=== PATIENT | male | born 1985 | race African-American/Black ===

== ENCOUNTER 2018-03-06 20:47 | Outpatient (CLI) | payer BC | END 2018-03-06 20:48 | disposition critical access hospital (66) | LOC: EMS 20:47 | PROVIDERS: ATTEND Surgery | DX: R06.00 Dyspnea, unspecified (principal) | CPT/HCPCS: A0425; A0427 ==

== ENCOUNTER 2018-03-06 21:05 | Emergency (ER) | payer BC ==
[2018-03-06] MEDS ORDERED: IPRATROPIUM/ALBUTEROL 3 ML NEB INH STA (21:09)
[2018-03-06] MEDS ORDERED: predniSONE 20 MG TABLET PO STA (21:09)
--- NOTE | 2018-03-06 21:12 | ED Physician Documentation ---
PD HPI DYSPNEA - Stated complaint Stated Complaint: DIFF BREATHING, ASTHMA - History obtained from History obtained from: Patient, EMS - History of Present Illness Timing - onset: How many days ago (2) Timing - details: Gradual onset, Still present Inciting event(s): Out of meds Improved by: O2, Inhaler/neb Associated symptoms: Wheezing Similar symptoms before: Diagnosis Recently seen: Not recently seen - Additional information Additional information: Patient is a 33 year old male with a history of asthma who is presenting to the emergency department for shortness of breath. patient has had worsening wheezing and shortness of breath over the last couple of days. patient does not have a primary so did not have an inhaler. ems was called today because patient was hunched over a car and was having trouble breathing. Upon their initial evaluation patient was 93% on room air. Patient was teated with an albuterol nebulizer enroute and was saturating at 96% on room air initially in the emergency department. Review of Systems Ten Systems: 10 systems reviewed and negative Constitutional: denies: Fever, Chills Cardiac: denies: Chest pain / pressure, Palpitations, Pedal edema Respiratory: reports: Dyspnea, Cough, Wheezing PD PAST MEDICAL HISTORY - Past Surgical History Past Surgical History: No - Present Medications Home Medications: Ambulatory Orders Medication Instructions Recorded Confirmed Sulfamethoxazole/Trimethoprim 1 each PO BID #14 tablet 05/26/15 [Sulfamethoxazole-Tmp Ds Tablet] Albuterol Sulfate [Proventil Hfa 1 - 2 puffs INH Q4H PRN #1 inhaler 03/06/18 Inhaler] predniSONE [Prednisone] 60 mg PO DAILY 5 Days tablet 03/06/18 - Allergies Allergies/Adverse Reactions: Allergies Allergy/AdvReac Type Severity Reaction Status Date / Time pollen extracts Allergy Respiratory Verified 03/06/18 21:11 shellfish derived Allergy Anaphylaxis Verified 03/06/18 21:18 - Social History Does the pt smoke?: No Smoking Status: Never smoker Does the pt drink ETOH?: Yes Does the pt have substance abuse?: No - Immunizations Immunizations are current?: Yes PD ED PE NORMAL - Vitals Vital signs reviewed: Yes - General General: Alert and oriented X 3 - HEENT HEENT: Atraumatic - Cardiac Cardiac: RRR - Derm Derm: Normal color, No rash - Extremities Extremities: No deformity - Neuro Neuro: Alert and oriented X 3 Eye Opening: Spontaneous Motor: Obeys Commands PD ED PE EXPANDED - Respiratory Respiratory: Wheezing (mild wheezing bilaterally). No: Labored, Accessory mm use Results - Vitals Vitals: Vital Signs - 24 hr 03/06/18 03/06/18 21:09 21:22 Temperature 36.4 C L Heart Rate 103 H 113 H Respiratory 22 12 Rate Blood Pressure 151/92 H O2 Saturation 96 Oxygen O2 Source Room air PD MEDICAL DECISION MAKING - ED course Complexity details: reviewed old records, reviewed results, re-evaluated patient , considered differential, d/w patient ED course: Patient was seen and examined at bedside. patient was much improved after the original inhaler treatment. Patient was treated with prednisone 60mg and duoneb. After the treatment patient stated that he felt much better and would like to go home. prescriptions were written. Patient required no further work up and was stable for discharge with outpatient follow up. - Sepsis Event Vital Signs: Vital Signs - 24 hr 03/06/18 03/06/18 21:09 21:22 Temperature 36.4 C L Heart Rate 103 H 113 H Respiratory 22 12 Rate Blood Pressure 151/92 H O2 Saturation 96 Oxygen O2 Source Room air Departure - Departure Disposition: 01 Home, Self Care Clinical Impression: Asthma attack Condition: Good Instructions: Asthma Dc Follow-Up: [facility] [Provider Group] [facility] [Provider Group] Prescriptions: Albuterol Sulfate [Proventil Hfa Inhaler] 1 - 2 puffs INH Q4H PRN #1 inhaler PRN Reason: Shortness Of Air/Wheezing predniSONE [Prednisone] 60 mg PO DAILY 5 Days tablet Comments: Your symptoms today are being caused by an asthma attack. you will be on a short dose of steroids and have been prescribed a rescue inhaler. two community clinics have been listed and it is important to establish primary care. you should return to the emergency department for worsening symptoms.
[2018-03-06 21:15] VITALS: BP 151/92
== END 2018-03-06 21:39 | disposition home or self-care (01) ==
LOC: EDUNIT# → ED 21:05
DX: J45.909 Unspecified asthma, uncomplicated (principal)
CPT/HCPCS: 94640; 99283; J7512

== ENCOUNTER 2024-12-19 09:39 | Inpatient (IN) ==
[~2024-12-19 09:39] MED LIST: VANCOMYCIN INJ 1.75 GM in SODIUM CHLORIDE 0.9% 500 ML IV SCH
--- NOTE | 2024-12-19 10:15 | ED Physician Documentation ---
History of Present Illness Stated complaint Stated Complaint: GI PX Chief complaint Chief Complaint: General History obtained from History obtained from: Patient History of Present Illness Pain level max: 8 Pain level now: 8 Additonal information Additional information: Patient is a 39-year-old male who presents to the emergency department complaining of pain and swelling to the right buttocks going down underneath the pelvis and towards the scrotum. Has been worsening steadily since Wednesday, 4 days ago. No fevers but has had some chills. Worse with sitting and movement. Nothing makes it better. Has not taken anything for the pain. Has not had similar symptoms previously. Does not recall any injury. Review of Systems Constitutional Reports: Chills Respiratory Denies: Cough Gastrointestinal Denies: Abdominal pain, Nausea or Vomiting Meds/Allgy Home Medications Ambulatory Orders Medication Instructions Recorded Confirmed No Known Home Medications 12/19/24 12/19/24 Allergies Allergies Allergy/AdvReac Type Severity Reaction Status Date / Time pollen extracts Allergy Respiratory Verified 12/19/24 09:55 shellfish derived Allergy Anaphylaxis Verified 12/19/24 09:55 PFSH Active Problems All Active Problems (Updated 12/19/24 @ 15:12 by Cheyenne Miguel MD) Hyperglycemia without ketosis (Acute) Encounter for intubation (Acute) Hyperglycemia (Acute) 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 MRSA cellulitis 02/2015 forearm, 05/2015 L finger No pertinent past medical history Surgical History Surgical History (Updated 12/19/24 @ 09:56 by Marium Min, RN, BSN) No pertinent past surgical history Social History Social History Smoking Status: Never smoker Relationship: Do you feel safe in your home environment?: Yes Suffered physical, verbal, emotional, or financial abuse?: No History of Abuse: No Frequency: Occasional Exam Exam Vital Signs: Vital Signs x48h Pulse Resp BP Pulse Ox 12/19/24 12:30 122 H 15 132/97 H 98 Constitutional normal general appearance appears in pain Eyes PERRL Neck/C-Spine trachea midline Respiratory breath sounds equal bilaterally, normal respiratory effort and clear to auscultation bilaterally Cardiovascular normal heart rate noted and regular rhythm noted Gastrointestinal abdomen soft to palpation, nontender to palpation and nondistended Genitourinary large indurated area from the R buttock through the perineum and to the scrotum. Extremities no edema Neurology GCS 15 Psychiatry mental status grossly normal and oriented x3 Skin skin color normal Results Vitals Vitals: Vital Signs - 24 hr 12/19/24 09:42 12/19/24 10:24 12/19/24 10:59 Temperature 37.2 C Pulse Rate 144 H Respiratory Rate 18 Blood Pressure 153/91 H O2 Saturation 96 O2 Source Room air Pain Intensity 9 8 4 12/19/24 11:00 12/19/24 12:00 12/19/24 12:20 Temperature Pulse Rate 110 H 101 H Respiratory Rate 16 8 L Blood Pressure 121/64 123/75 O2 Saturation 97 97 O2 Source Room air Room air Pain Intensity 4 4 4 12/19/24 12:30 Temperature Pulse Rate 122 H Respiratory Rate 15 Blood Pressure 132/97 H O2 Saturation 98 O2 Source Room air Pain Intensity Oxygen O2 Source Room air Labs Labs: Laboratory Tests 12/19/24 12/19/24 10:15 12:44 WBC 19.9 H RBC 5.42 Hgb 15.5 Hct 46.6 MCV 86.0 MCH 28.6 MCHC 33.3 RDW 11.7 L Plt Count 192 MPV 11.4 Neut # (Auto) 16.4 H Lymph # (Auto) 1.3 L [place] # (Auto) 2.0 H Eos # (Auto) 0.0 Baso # (Auto) 0.1 Absolute Nucleated RBC 0.00 Nucleated RBC % 0.0 Manual Slide Review Indicated Platelet Estimate NORMAL (130-450,000) Platelet Morphology NORMAL APPEARANCE RBC Morph Micro Appear NORMAL APPEARANCE Sodium 126 L Potassium 4.2 Chloride 93 L Carbon Dioxide 16 L Anion Gap 17.0 H BUN 13 Creatinine 0.9 Estimated GFR (MDRD) 115 Glucose 387 H Estimat Average Glucose 315 H Hemoglobin A1c % 12.6 H Lactic Acid 1.0 Calcium 9.5 Total Bilirubin 1.0 AST 10 ALT 16 Alkaline Phosphatase 88 C-Reactive Protein 25.0 H Total Protein 8.2 Albumin 3.8 Globulin 4.4 H Albumin/Globulin Ratio 0.9 L Blood Type Recheck B POSITIVE Rads (name of study) CT pelvis: Relevant Findings:: Final report received Interpretation: PROCEDURE: CT Pelvis W INDICATIONS: perianal abscess CONTRAST: Omni 300 100ml TECHNIQUE: After the administration of intravenous contrast, a CT scan of the pelvis was performed. Images were recorded and evaluated at appropriate window settings. Reformats: axial MIP of the chest, coronal and sagittal. For radiation dose reduction, the following was used: automated exposure control, adjustment of mA and/or kV according to patient size. COMPARISON: None FINDINGS: Image quality: Excellent. Bowel and peritoneum: No bowel distension. No pathologic free fluid. Vessels: No infrarenal aortic aneurysm. Reproductive organs: Unremarkable. Bladder: No abnormal wall thickening, accounting for underdistention. Pelvic lymph nodes: No pelvic adenopathy by size criteria. Bones: No aggressive osseous abnormality. Other: Extensive cellulitic change in the right perineum and upper medial thigh subcutaneous tissues with a small amount of locules of air present within the inflamed area. Reference axial image 91, axial image 93, and axial image 94 of series 2. There is extensive fluid fluid present within the subcutaneous tissues. There is perhaps an early small focal abscess forming posteriorly, measuring approximately 4.3 x 1.6 cm. This axial image 93 of series 2. One of the locules of air is noted anteriorly, at the level of the femoral shaft, on the same image. Bilateral inguinal hernias are present, left greater than right. The left herniated fat extends into the left hemiscrotum.. IMPRESSION: 1. Extensive cellulitic change and early abscess formation. Extensive fluid. Tiny locules of air. 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 2. Bilateral inguinal hernias with impressive herniation of fat into the left hemiscrotum. 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 Discussed the case with Dr. No, urology and Dr. East, general surgery. Recommend transfer to [facility] as there is a delay in transfer will plan on doing the initial debridement here. Patient started on IV Vanco and Zosyn. Call placed to [facility] at 11:50 AM. Patient states that he does have a history of high blood sugar but states he is not on any medications for diabetes. Dr. East and Dr. No will take to OR for initial debridement and will transfer after surgery to [facility]. I did speak with Dr. Bae (urology at [facility]) and she requests an update from Dr. No after surgery with plan to transfer the patient. Patient taken to the OR here. 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
[2024-12-19 10:21] LABS: BASOPHILS # (AUTO) 0.1 10^3/uL (0.0-0.1); BASOPHILS % (AUTO) 0.3 %; EOSINOPHILS % (AUTO) 0.1 %; HCT - HEMATOCRIT 46.6 % (42.0-52.0); HGB - HEMOGLOBIN 15.5 g/dL (14.0-18.0); LYMPHOCYTES # (AUTO) 1.3 10^3/uL (1.5-3.5); LYMPHOCYTES % (AUTO) 6.8 %; MEAN CORPUSCULAR HEMOGLOBIN 28.6 pg (27.0-31.0); MEAN CORPUSCULAR HGB CONC 33.3 g/dL (32.0-36.0); MEAN PLATELET VOLUME 11.4 fL (7.4-11.4); MONOCYTES % (AUTO) 9.8 %; NEUTROPHILS # (AUTO) 16.4 10^3/uL (1.5-6.6); NEUTROPHILS % (AUTO) 82.6 %; PLT - PLATELET COUNT 192 10^3/uL (130-450); RED BLOOD COUNT 5.42 10^6/uL (4.70-6.10); RED CELL DISTRIBUTION WIDTH 11.7 % (12.0-15.0); WHITE BLOOD COUNT 19.9 x10^3/uL (4.8-10.8)
[2024-12-19 10:23] LABS: SLIDE REVIEW? Indicated
[2024-12-19] MEDS: SODIUM CHLORIDE 0.9% 1,000 ML IV STA ×2 (10:23→12:20)
[2024-12-19] MEDS: KETOROLAC 30 MG/ML VIAL IVP STA (10:24)
[2024-12-19 10:36] LABS: ALBUMIN 3.8 g/dL (3.2-5.5); ALBUMIN/GLOBULIN RATIO 0.9 (1.0-2.2); CALCIUM 9.5 mg/dL (8.5-10.3); CREATININE 0.9 mg/dL (0.6-1.3); POTASSIUM 4.2 mmol/L (3.5-4.5); TOTAL PROTEIN 8.2 g/dL (6.4-8.9)
[2024-12-19 10:44] LABS: PLATELET ESTIMATE, MANUAL NORMAL (130-450,000) (NORMAL); PLATELET MORPHOLOGY NORMAL APPEARANCE (NORMAL); RBC MORPHOLOGY (MULTIPLE) NORMAL APPEARANCE (NORMAL)
[2024-12-19] MEDS ORDERED: iohexoL-300 100 ML VIAL ONE (11:04)
[2024-12-19] MEDS: iohexoL-300 100 ML VIAL IVP ONE (11:34)
--- NOTE | 2024-12-19 11:46 | CT Report ---
PROCEDURE: CT Pelvis W INDICATIONS: perianal abscess CONTRAST: Omni 300 100ml TECHNIQUE: After the administration of intravenous contrast, a CT scan of the pelvis was performed. Images were recorded and evaluated at appropriate window settings. Reformats: axial MIP of the chest, coronal an d sagittal. For radiation dose reduction, the following was used: automated exposure control, adjustm ent of mA and/or kV according to patient size. COMPARISON: None FINDINGS: Image quality: Excellent. Bowel and peritoneum: No bowel distension. No pathologic free fluid. Vessels: No infrarenal aortic aneurysm. Reproductive organs: Unremarkable. Bladder: No abnormal wall thickening, accounting for underdistention. Pelvic lymph nodes: No pelvic adenopathy by size criteria. Bones: No aggressive osseous abnormality. Other: Extensive cellulitic change in the right perineum and upper medial thigh subcutaneous tissues with a small amount of locules of air present within the inflamed area. Reference axial image 91, ax ial image 93, and axial image 94 of series 2. There is extensive fluid fluid present within the subcu taneous tissues. There is perhaps an early small focal abscess forming posteriorly, measuring approxi mately 4.3 x 1.6 cm. This axial image 93 of series 2. One of the locules of air is noted anteriorly, at the level of the femoral shaft, on the same image. Bilateral inguinal hernias are present, left greater than right. The left herniated fat extends into the left hemiscrotum.. IMPRESSION: 1. Extensive cellulitic change and early abscess formation. Extensive fluid. Tiny locules of air. Con forklift supervisor Abbey's gangrene. 2. Bilateral inguinal hernias with impressive herniation of fat into the left hemiscrotum. Above discussed with Myron Tam MD at the time of dictation on 12/19/2024 at 1143 hours. Reviewed by: Hans Calvin MD on 12/19/2024 11:44 AM PDT Approved by: Hans Calvin MD on 12/19/2024 11:44 AM PDT Station ID: [id number]
[2024-12-19] MEDS: PIPERACILLIN/TAZOBACTAM 4.5 GM in SODIUM CHLORIDE 0.9% MINIBAG 100 ML IV STA (12:19)
[2024-12-19] MEDS: HYDROmorphone 1 MG/ML SYRINGE IVP STA (12:20)
--- NOTE | 2024-12-19 12:23 | CONSULTATION NOTE ---
Chief Complaint Chief Complaint Chief Complaint: right pain History of Present Illness Admitted From Admitted From:: ER History of Present Illness HPI Comment/Other: Jose is a pleasant 39-year-old male with no significant urological history who presents today with 4 days of worsening right-sided scrotal and medial buttock pain. He has noted some swelling there. He was seen in the ER today and showed concern for infection. His blood work is notable for a leukocytosis of 19.9. He had imaging performed which showed extensive cellulitic site changes and early abscess formation possible Abbey's gangrene. I reviewed the CT scan myself and interpreted directly and I can see small foci of air in his tissues mostly in his right perineum and thigh His blood sugars 397. 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) Medical History Medical History (Updated 12/19/24 @ 11:56 by Myron Tam MD) No pertinent past medical history Surgical History Surgical History (Updated 12/19/24 @ 09:56 by Marium Min RN, BSN) No pertinent past surgical history Social History Social History Smoking Status: Never smoker Relationship: Do you feel safe in your home environment?: Yes Suffered physical, verbal, emotional, or financial abuse?: No History of Abuse: No Frequency: Occasional Meds/Allgy Home Medications Ambulatory Orders Medication Instructions Recorded Confirmed No Known Home Medications 12/19/24 12/19/24 Allergies Allergies Allergy/AdvReac Type Severity Reaction Status Date / Time pollen extracts Allergy Respiratory Verified 12/19/24 09:55 shellfish derived Allergy Anaphylaxis Verified 12/19/24 09:55 Results Lab Results Lab results reviewed: Yes 12/19/24 10:15 12/19/24 10:15 Other Lab Results: Lab Results x24hrs 12/19/24 Range/Units 10:15 WBC 19.9 H (4.8-10.8) x10^3/uL RBC 5.42 (4.70-6.10) 10^6/uL Hgb 15.5 (14.0-18.0) g/dL Hct 46.6 (42.0-52.0) % MCV 86.0 (80.0-94.0) fL MCH 28.6 (27.0-31.0) pg MCHC 33.3 (32.0-36.0) g/dL RDW 11.7 L (12.0-15.0) % Plt Count 192 (130-450) 10^3/uL MPV 11.4 (7.4-11.4) fL Neut # (Auto) 16.4 H (1.5-6.6) 10^3/uL Lymph # (Auto) 1.3 L (1.5-3.5) 10^3/uL [place] # (Auto) 2.0 H (0.0-1.0) 10^3/uL Eos # (Auto) 0.0 (0.0-0.7) 10^3/uL Baso # (Auto) 0.1 (0.0-0.1) 10^3/uL Absolute Nucleated RBC 0.00 x10^3/uL Nucleated RBC % 0.0 /100WBC Manual Slide Review Indicated Platelet Estimate NORMAL (130-450,000) (NORMAL) Platelet Morphology NORMAL APPEARANCE (NORMAL) RBC Morph Micro Appear NORMAL APPEARANCE (NORMAL) Sodium 126 L (135-145) mmol/L Potassium 4.2 (3.5-4.5) mmol/L Chloride 93 L (101-111) mmol/L Carbon Dioxide 16 L (21-32) mmol/L Anion Gap 17.0 H (6-13) BUN 13 (6-20) mg/dL Creatinine 0.9 (0.6-1.3) mg/dL Estimated GFR (MDRD) 115 (>89) Glucose 387 H (74-104) mg/dL Calcium 9.5 (8.5-10.3) mg/dL Total Bilirubin 1.0 (0.2-1.0) mg/dL AST 10 (10-42) IU/L ALT 16 (10-60) IU/L Alkaline Phosphatase 88 (42-121) IU/L Total Protein 8.2 (6.4-8.9) g/dL Albumin 3.8 (3.2-5.5) g/dL Globulin 4.4 H (2.1-4.2) g/dL Albumin/Globulin Ratio 0.9 L (1.0-2.2) Exam Exam Vital Signs: Vital Signs x48h Temp Pulse Resp BP Pulse Ox 12/19/24 12:00 101 H 8 L 123/75 97 12/19/24 11:00 110 H 16 121/64 97 12/19/24 09:42 37.2 C 144 H 18 153/91 H 96 NAD obese tachycardic CTA b/l Right peroneal induration without crepitance. Scrotum without involvement. 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 We discussed this is an extremely concerning diagnosis with a high mortality rate. He is an undiagnosed diabetic. He has started Zosyn and vancomycin. I recommend adding clindamycin. I have discussed the patient with Dr. East. We will take him emergently for a Abbey's debridement. We discussed the risks of the procedure including infection, bleeding, injury to adjacent structures, need for additional procedures. We discussed the risk of . We discussed anesthesia risk. He understands he would likely have multiple surgical revisions. He may be transferred as well. Lab Results Lab results reviewed: Yes 12/19/24 10:15 12/19/24 10:15
[2024-12-19] MEDS: VANCOMYCIN INJ 2 GM in SODIUM CHLORIDE 0.9% 500 ML IV STA (12:30)
[2024-12-19] MEDS ORDERED: DEXAMETHASONE 4 MG/ML VIAL ONE (12:37)
[2024-12-19] MEDS ORDERED: ONDANSETRON 4 MG/2 ML VIAL ONE (12:37)
[2024-12-19] MEDS ORDERED: PROPOFOL 200 MG/20 ML VIAL IVP ONE ×2 (12:37→12:46)
[2024-12-19] MEDS ORDERED: fentaNYL 100 MCG/2 ML VIAL ONE ×2 (12:37→15:12)
[2024-12-19] MEDS ORDERED: SUCCINYLCHOLINE 200 MG/10 ML VIAL ONE (12:37)
[2024-12-19] MEDS ORDERED: ROCURONIUM 50 MG/5 ML VIAL ONE (12:37)
[2024-12-19] MEDS ORDERED: LIDOCAINE-PF 2% 10 ML AMP SUBQ ONE (12:37)
[2024-12-19 12:40] LABS: ESTIMATED AVERAGE GLUCOSE 315 mg/dL (70-100); HEMOGLOBIN A1c% 12.6 % (4.27-6.07)
[2024-12-19] MEDS ORDERED: LIDOCAINE-MPF 1% 30 ML VIAL ONE (12:40)
[2024-12-19] MEDS ORDERED: CLINDAMYCIN 900 MG/50 ML 900 MG/50 ML BAG IV ONE (12:45)
[2024-12-19] MEDS ORDERED: SUGAMMADEX 200 MG/2 ML VIAL IVP ONE (14:27)
--- NOTE | 2024-12-19 14:36 | OPERATIVE REPORT ---
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 East, the patient was brought to the OR and laid in the supine position. The patient was anesthetized per anesthesia protocols and prepped draped in usual sterile fashion in the high lithotomy position. He was prepped extensively with Betadine. He was noted to have indurated tissue to the medial aspect of his right buttock. His scrotum did not feel involved. A formal timeout was performed reconfirming the patient, procedure and laterality. 1% lidocaine was injected into the superficial skin overlying this right indurated tissue of his buttock. We then used a Bovie cautery to incise deeply until we could see a release of foul-smelling milky cloudy fluid consistent with gangrenous debris. Using blunt dissection and sharp dissection we opened up this tissue anteriorly and posteriorly which extended to his right inguinal ring and posteriorly to a few inches posterior to his anus. and necrotic skin and fatty tissue was sharply debrided. The necrotic tissue was tracked laterally and medially. The necrotic tissue did not violate into the scrotum. A pulse lavage was performed with copious quantities of saline. He was then reinspected and further tissue debridement was performed to remove any tissue suspicious of being necrotic. Spot cautery used for hemostasis. There was significant oozing portions from multiple areas of the wound site. This took about 30 minutes to fully clean and dry. We then reinspected the wound and saw no other areas of concern. We packed the wound with 2 Kerlix which had been impregnated with iodine. This was covered with ABD pads and tape. We then used a mesh panties to hold on place. This concluded the procedure and the patient tolerated the procedure well. He will go to the ICU for further management. We will obtain lab work and a type and screen and consider transfusion as needed. He will remain on antibiotics including broad-spectrum antibiotic vancomycin, Zosyn, clindamycin for the time being As of now the plan is to transfer him to [facility] for further management and care
[2024-12-19] MEDS ORDERED: PROPOFOL 1000 MG/100 ML 1,000 MG/100 ML BOTTLE IV ONE (14:37)
[2024-12-19] MEDS: PROPOFOL 1000 MG/100 ML 1,000 MG/100 ML BOTTLE IV SCH (14:42)
[2024-12-19] MEDS: CLINDAMYCIN 900 MG/50 ML 900 MG/50 ML BAG IV SCH (14:51)
[2024-12-19] MEDS: NOREPINEPHRINE/0.9 % NS 8 MG/250 ML BAG IV SCH (14:59)
--- NOTE | 2024-12-19 15:02 | ANESTHESIA PROCEDURE NOTE ---
Pre-Anesthesia VS, & Labs Diagnosis Surgical Diagnosis:: necrotizing fasciitis Procedure Procedure: I&D of perineum Vitals Vital Signs: Temp Pulse Resp BP Pulse Ox 37.2 C 122 H 15 132/97 H 98 12/19/24 09:42 12/19/24 12:30 12/19/24 12:30 12/19/24 12:30 12/19/24 12:30 NPO NPO: Other Last Fluid Intake: pineapple juice [id number] Lab Results Current Lab Results: Laboratory Tests 12/19/24 14:40: POC Whole Bld Glucose 293 12/19/24 14:08: Crossmatch IS Only See Detail 12/19/24 13:51: POC Whole Bld Glucose 265 12/19/24 12:44: Lactic Acid 1.0, C-Reactive Protein 25.0 H 12/19/24 10:15: WBC 19.9 H, RBC 5.42, Hgb 15.5, Hct 46.6, MCV 86.0, MCH 28.6, MCHC 33.3, RDW 11.7 L, Plt Count 192, MPV 11.4, Neut # (Auto) 16.4 H, Lymph # (Auto) 1.3 L, [place] # (Auto) 2.0 H, Eos # (Auto) 0.0, Baso # (Auto) 0.1, Absolute Nucleated RBC 0.00, Nucleated RBC % 0.0, Manual Slide Review Indicated, Platelet Estimate NORMAL (130-450,000), Platelet Morphology NORMAL APPEARANCE, RBC Morph Micro Appear NORMAL APPEARANCE, Sodium 126 L, Potassium 4.2, Chloride 93 L, C arbon Dioxide 16 L, Anion Gap 17.0 H, BUN 13, Creatinine 0.9, Estimated GFR (MDRD) 115, Glucose 387 H, Estimat Average Glucose 315 H, Hemoglobin A1c % 12.6 H, Calcium 9.5, Total Bilirubin 1.0, AST 10, ALT 16, Alkaline Phosphatase 88, Total Protein 8.2, Albumin 3.8, Globulin 4.4 H, Albumin/Globulin Ratio 0.9 L, Blood Type Recheck B POSITIVE 12/19/24 10:15 12/19/24 10:15 Meds/Allgy Home Medications Ambulatory Orders Medication Instructions Recorded Confirmed No Known Home Medications 12/19/24 12/19/24 Allergies Allergies Allergy/AdvReac Type Severity Reaction Status Date / Time pollen extracts Allergy Respiratory Verified 12/19/24 09:55 shellfish derived Allergy Anaphylaxis Verified 12/19/24 09:55 PFSH Active Problems All Active Problems (Updated 12/19/24 @ 11:56 by Myron Tam MD) Hyperglycemia (Acute) 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) Medical History Medical History (Updated 12/19/24 @ 11:56 by Myron Tam MD) No pertinent past medical history Surgical History Surgical History (Updated 12/19/24 @ 09:56 by Marium Min, RN, BSN) No pertinent past surgical history Social History Social History Smoking Status: Never smoker Relationship: Do you feel safe in your home environment?: Yes Suffered physical, verbal, emotional, or financial abuse?: No History of Abuse: No Frequency: Occasional POLST POLST Status: Full Code Anesthesia Exam (Expanded) Exam General: Alert, Oriented x3 and Cooperative Dental: WNL Mouth Openin Fingerbreadth Neck Mobility: Normal Mallampati classification: III Thyromental Distance: 4-6 cm Respiratory: Lungs clear Exam Exam Vital Signs: Vital Signs x48h Temp Pulse Resp BP Pulse Ox 12/19/24 12:30 122 H 15 132/97 H 98 12/19/24 12:00 101 H 8 L 123/75 97 12/19/24 11:00 110 H 16 121/64 97 12/19/24 09:42 37.2 C 144 H 18 153/91 H 96 Plan Problem List (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 We discussed this is an extremely concerning diagnosis with a high mortality rate. He is an undiagnosed diabetic. He has started Zosyn and vancomycin. I recommend adding clindamycin. I have discussed the patient with Dr. East. We will take him emergently for a Abbey's debridement. We discussed the risks of the procedure including infection, bleeding, injury to adjacent structures, need for additional procedures. We discussed the risk of . We discussed anesthesia risk. He understands he would likely have multiple surgical revisions. He may be transferred as well. Plan Anesthesia Type: General Regional Block: Per Surgeon's request for Post Op pain control Consent for Procedure(s) Verified and Reviewed: Yes Code Status: Attempt Resuscitation ASA Classification ASA classification: 5-Moribund Is this case an emergency?: Yes
--- NOTE | 2024-12-19 15:07 | CONSULTATION NOTE ---
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 We discussed this is an extremely concerning diagnosis with a high mortality rate. He is an undiagnosed diabetic. He has started Zosyn and vancomycin. I recommend adding clindamycin. I have discussed the patient with Dr. East. We will take him emergently for a Abbey's debridement. We discussed the risks of the procedure including infection, bleeding, injury to adjacent structures, need for additional procedures. We discussed the risk of . We discussed anesthesia risk. He understands he would likely have multiple surgical revisions. He may be transferred as well. Lab Results Lab results reviewed: Yes 12/19/24 10:15 12/19/24 10:15 Meds/Allgy Home Medications Ambulatory Orders Medication Instructions Recorded Confirmed No Known Home Medications 12/19/24 12/19/24 Allergies Allergies Allergy/AdvReac Type Severity Reaction Status Date / Time pollen extracts Allergy Respiratory Verified 12/19/24 09:55 shellfish derived Allergy Anaphylaxis Verified 12/19/24 09:55 Anesthesia Exam (Expanded) Exam Dental: WNL Exam Exam Vital Signs: Vital Signs x48h Temp Pulse Resp BP Pulse Ox 12/19/24 12:30 122 H 15 132/97 H 98 12/19/24 12:00 101 H 8 L 123/75 97 12/19/24 11:00 110 H 16 121/64 97 12/19/24 09:42 37.2 C 144 H 18 153/91 H 96
[2024-12-19] MEDS ORDERED: ONDANSETRON 4 MG/2 ML VIAL IVP PRN ×2 (15:08→15:51)
[2024-12-19] MEDS ORDERED: METOCLOPRAMIDE 10 MG/2 ML VIAL IVP PRN (15:08)
[2024-12-19] MEDS ORDERED: HYDROmorphone 0.5 MG/0.5 ML SYRINGE IVP PRN (15:08)
[2024-12-19] MEDS ORDERED: NALOXONE 0.4 MG/ML VIAL IVP PRN (15:08)
[2024-12-19] MEDS ORDERED: ATROPINE ABBOJECT 1 MG/10 ML SYRINGE IVP PRN (15:08)
[2024-12-19] MEDS ORDERED: MORPHINE 2 MG/ML CARPUJECT IVP PRN (15:08)
[2024-12-19] MEDS ORDERED: ePHEDrine 50 MG/ML VIAL IVP PRN (15:08)
--- NOTE | 2024-12-19 15:08 | ANESTHESIA PROCEDURE NOTE ---
Anesth Central Line Template Central Line Procedure Date: 12/19/24 Central Line Preparation: Unable to obtain consent, Time out completed, Ultrasound used and Sterile prep and drape Central line location: Right IJ Central line type: Triple lumen Central line catheter tip site resides: Superior vena cava (SVC) Central line aftercare: Chlorhexidine disc placed, Secured, Placement confirmed (in ICU), No pneumothorax, No complications, Bundle checklist complete and Pt tolerated well
[2024-12-19] MEDS: fentaNYL 100 MCG/2 ML VIAL IVP PRN (15:13)
--- NOTE | 2024-12-19 15:13 | CONSULTATION NOTE ---
Referring Provider Name of Referring Provider:: Oneal Vale MD Consult Date: 12/19/24 Chief Complaint Chief Complaint Chief Complaint: Fourneir's Gangrene History of Present Illness Admitted From Admitted From:: home via ambulance History Obtained From Records Reviewed: [facility] History obtained from: Dr. Vale and Dr. East Exam Limitations: patient is intubated, sedated History of Present Illness HPI Comment/Other: Per Dr. Vale: Jose is a pleasant 39-year-old male with no significant urological history who presents today with 4 days of worsening right-sided scrotal and medial buttock pain. He has noted some swelling there. He was seen in the ER today and showed concern for infection. His blood work is notable for a leukocytosis of 19.9. He had imaging performed which showed extensive cellulitic site changes and early abscess formation possible Abbey's gangrene. I reviewed the CT scan myself and interpreted directly and I can see small foci of air in his tissues mostly in his right perineum and thigh His blood sugars 397. He does not recall being told he is diabetic Dr. Vale has asked for our help on the medicine service to transition this patient. Plan is for him to receive emergency surgery. From there he needs to be transferred to [facility]. 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 MRSA cellulitis 02/2015 forearm, 05/2015 L finger No pertinent past medical history Surgical History Surgical History (Updated 12/19/24 @ 09:56 by Marium Min, RN, BSN) No pertinent past surgical history Social History Social History Smoking Status: Never smoker Relationship: Do you feel safe in your home environment?: Yes Suffered physical, verbal, emotional, or financial abuse?: No History of Abuse: No Frequency: Occasional POLST Patient has POLST: No POLST Status: Full Code Results Lab Results Lab results reviewed: Yes 12/19/24 16:00 12/19/24 16:00 Other Lab Results: Lab Results x24hrs 12/19/24 12/19/24 12/19/24 Range/Units 14:40 14:08 13:51 WBC (4.8-10.8) x10^3/uL RBC (4.70-6.10) 10^6/uL Hgb (14.0-18.0) g/dL Hct (42.0-52.0) % MCV (80.0-94.0) fL MCH (27.0-31.0) pg MCHC (32.0-36.0) g/dL RDW (12.0-15.0) % Plt Count (130-450) 10^3/uL MPV (7.4-11.4) fL Neut # (Auto) (1.5-6.6) 10^3/uL Lymph # (Auto) (1.5-3.5) 10^3/uL [place] # (Auto) (0.0-1.0) 10^3/uL Eos # (Auto) (0.0-0.7) 10^3/uL Baso # (Auto) (0.0-0.1) 10^3/uL Absolute Nucleated RBC x10^3/uL Nucleated RBC % /100WBC Manual Slide Review Platelet Estimate (NORMAL) Platelet Morphology (NORMAL) RBC Morph Micro Appear (NORMAL) Sodium (135-145) mmol/L Potassium (3.5-4.5) mmol/L Chloride (101-111) mmol/L Carbon Dioxide (21-32) mmol/L Anion Gap (6-13) BUN (6-20) mg/dL Creatinine (0.6-1.3) mg/dL Estimated GFR (MDRD) (>89) Glucose (74-104) mg/dL POC Whole Bld Glucose 293 265 (70-100) mg/dL Estimat Average Glucose (70-100) mg/dL Hemoglobin A1c % (4.27-6.07) % Lactic Acid (0.5-2.2) mmol/L Calcium (8.5-10.3) mg/dL Total Bilirubin (0.2-1.0) mg/dL AST (10-42) IU/L ALT (10-60) IU/L Alkaline Phosphatase (42-121) IU/L C-Reactive Protein (<0.5) mg/dL Total Protein (6.4-8.9) g/dL Albumin (3.2-5.5) g/dL Globulin (2.1-4.2) g/dL Albumin/Globulin Ratio (1.0-2.2) Blood Type Recheck Crossmatch IS Only See Detail 12/19/24 12/19/24 Range/Units 12:44 10:15 WBC 19.9 H (4.8-10.8) x10^3/uL RBC 5.42 (4.70-6.10) 10^6/uL Hgb 15.5 (14.0-18.0) g/dL Hct 46.6 (42.0-52.0) % MCV 86.0 (80.0-94.0) fL MCH 28.6 (27.0-31.0) pg MCHC 33.3 (32.0-36.0) g/dL RDW 11.7 L (12.0-15.0) % Plt Count 192 (130-450) 10^3/uL MPV 11.4 (7.4-11.4) fL Neut # (Auto) 16.4 H (1.5-6.6) 10^3/uL Lymph # (Auto) 1.3 L (1.5-3.5) 10^3/uL [place] # (Auto) 2.0 H (0.0-1.0) 10^3/uL Eos # (Auto) 0.0 (0.0-0.7) 10^3/uL Baso # (Auto) 0.1 (0.0-0.1) 10^3/uL Absolute Nucleated RBC 0.00 x10^3/uL Nucleated RBC % 0.0 /100WBC Manual Slide Review Indicated Platelet Estimate NORMAL (130-450,000) (NORMAL) Platelet Morphology NORMAL APPEARANCE (NORMAL) RBC Morph Micro Appear NORMAL APPEARANCE (NORMAL) Sodium 126 L (135-145) mmol/L Potassium 4.2 (3.5-4.5) mmol/L Chloride 93 L (101-111) mmol/L Carbon Dioxide 16 L (21-32) mmol/L Anion Gap 17.0 H (6-13) BUN 13 (6-20) mg/dL Creatinine 0.9 (0.6-1.3) mg/dL Estimated GFR (MDRD) 115 (>89) Glucose 387 H (74-104) mg/dL POC Whole Bld Glucose (70-100) mg/dL Estimat Average Glucose 315 H (70-100) mg/dL Hemoglobin A1c % 12.6 H (4.27-6.07) % Lactic Acid 1.0 (0.5-2.2) mmol/L Calcium 9.5 (8.5-10.3) mg/dL Total Bilirubin 1.0 (0.2-1.0) mg/dL AST 10 (10-42) IU/L ALT 16 (10-60) IU/L Alkaline Phosphatase 88 (42-121) IU/L C-Reactive Protein 25.0 H (<0.5) mg/dL Total Protein 8.2 (6.4-8.9) g/dL Albumin 3.8 (3.2-5.5) g/dL Globulin 4.4 H (2.1-4.2) g/dL Albumin/Globulin Ratio 0.9 L (1.0-2.2) Blood Type Recheck B POSITIVE Crossmatch IS Only EKG Results EKG Interpreted Independently: Yes Review of Systems Status of ROS: unobtainable due to medical condition Exam Exam Vital Signs: Vital Signs x48h Temp Pulse Resp BP Pulse Ox 12/19/24 12:30 122 H 15 132/97 H 98 12/19/24 12:00 101 H 8 L 123/75 97 12/19/24 11:00 110 H 16 121/64 97 12/19/24 09:42 37.2 C 144 H 18 153/91 H 96 Constitutional Intubated black male in ICU after surgery. On pressors, on ventilator. HENMT normocephalic and head/scalp atraumatic Eyes Pupils slow to react from sedative Chest inspection of chest normal Respiratory breath sounds equal bilaterally Intubated. At times abdominal musculature fighting the vent. Cardiovascular normal heart rate noted Borderline hypotensive at 101/53 Gastrointestinal Obese pannus. Hypoactive bowel sounds. 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 Patient currently intubated. Arrangements have already been made for him to be transferred to [facility]. I have started empiric antibiotics. (2) Encounter for intubation: Plan: Respiratory therapy seeing the patient with me. We have discussed vent settings and adjusting rate and oxygenation to account for his fighting the vent. (3) Hyperglycemia without ketosis: Plan: Unfortunate this poor gentleman did not know that he had diabetes. I am assuming this with a diagnosis is with such a high glucose. I have started an insulin drip in an effort to obtain glucose control. Lab Results Lab results reviewed: Yes 12/19/24 16:00 12/19/24 16:00 EKG Results EKG Interpreted Independently: Yes
[2024-12-19] MEDS: fentaNYL 2,500 MCG in SODIUM CHLORIDE 0.9% 200 ML IV SCH (15:17)
[2024-12-19] MEDS: INSULIN REGULAR IN 0.9 % NS 100 UNIT/100 ML BAG IV SCH (15:32)
[2024-12-19] MEDS: LACTATED RINGERS 500 ML IV ONE (15:35)
[2024-12-19] MEDS ORDERED: SODIUM CHLORIDE FLUSH 0.9% 10 ML SYRINGE IVP PRN (15:51)
[2024-12-19] MEDS ORDERED: ONDANSETRON ODT 4 MG TABLET TL PRN (15:51)
[2024-12-19] MEDS ORDERED: ALBUTEROL NEB 2.5 MG/3 ML INH PRN (15:51)
[2024-12-19 15:58] VITALS: TEMP 98.2
[2024-12-19 16:02] LABS: ABG OXYGEN SATURATION 99 % (95-98); ABG PCO2 33 mmHg (34-45); ABG PO2 97 mmHg (83-108)
[2024-12-19 16:03] LABS: ABG BASE EXCESS -10.6 mmol/L (-2.0-3.0); ABG HCO3 16.1 mmol/L (22.0-26.0); ABG MODE OF VENTILATION SIMV; ABG RESPIRATORY RATE 14 b/min; ABG TCO2 17.1 mmol/L (21.0-29.0)
[2024-12-19 16:06] LABS: BASOPHILS % (AUTO) 0.3 %; HGB - HEMOGLOBIN 12.3 g/dL (14.0-18.0)
[2024-12-19 16:08] LABS: HCT - HEMATOCRIT 35.5 % (42.0-52.0); LYMPHOCYTES % (AUTO) 7.6 %; MEAN CORPUSCULAR HGB CONC 34.6 g/dL (32.0-36.0); MEAN CORPUSCULAR VOLUME 86.6 fL (80.0-94.0); MEAN PLATELET VOLUME 11.4 fL (7.4-11.4); MONOCYTES % (AUTO) 6.4 %; NEUTROPHILS % (AUTO) 85.1 %; PLT - PLATELET COUNT 238 10^3/uL (130-450); RED CELL DISTRIBUTION WIDTH 11.7 % (12.0-15.0); WHITE BLOOD COUNT 26.3 x10^3/uL (4.8-10.8)
[2024-12-19 16:10] LABS: ABNORMAL LYMPHS % (MANUAL) 0 %
[2024-12-19] MEDS: PHENYLEPHRINE 20 MG in SODIUM CHLORIDE 0.9% 248 ML IV ONE (16:20)
[2024-12-19] MEDS: LACTATED RINGERS 1,000 ML IV SCH (16:21)
[2024-12-19] MEDS: SODIUM CHLORIDE FLUSH 0.9% 10 ML SYRINGE IVP SCH ×2 (16:22)
[2024-12-19] MEDS: SODIUM CHLORIDE FLUSH 0.9% 10 ML SYRINGE IVP PRN (16:22)
[2024-12-19 16:28] LABS: BAND NEUTROPHILS % (MANUAL) 9 %; DIFFERENTIAL COMMENT MANUAL DIFFERENTIAL; LYMPHOCYTES # (MANUAL) 2.1 10^3/uL (1.5-3.5); LYMPHOCYTES % (MANUAL) 8 %; MONOCYTES # (MANUAL) 1.6 10^3/uL (0.0-1.0); NEUTROPHILS # (MANUAL) 22.6 10^3/uL (1.5-6.6); PLATELET ESTIMATE, MANUAL NORMAL (130-450,000) (NORMAL); PLATELET MORPHOLOGY NORMAL APPEARANCE (NORMAL); RBC MORPHOLOGY (MULTIPLE) NORMAL APPEARANCE (NORMAL); WBC MORPHOLOGY (MULTIPLE) NORMAL APPEARANCE (NORMAL)
[2024-12-19] MEDS: PANTOPRAZOLE 40 MG VIAL IVP SCH (16:33)
[2024-12-19] MEDS: PIPERACILLIN/TAZOBACTAM 3.375 GM in SODIUM CHLORIDE 0.9% MINIBAG 100 ML IV SCH (16:33)
[2024-12-19 16:37] LABS: MAGNESIUM 1.9 mg/dL (1.7-2.3)
[2024-12-19 16:39] LABS: CALCIUM 8.1 mg/dL (8.5-10.3); CREATININE 0.8 mg/dL (0.6-1.3)
[2024-12-19 16:43] LABS: PHOSPHORUS 3.7 mg/dL (2.5-5.0)
[2024-12-19 17:07] VITALS: BP 122/72; O2SAT 98
[2024-12-19] MEDS ORDERED: CLINDAMYCIN INJ 300 MG in SODIUM CHLORIDE 0.9% 50 ML IV SCH (18:20)
--- NOTE | 2024-12-19 19:15 | ANESTHESIA POST OP EVALUATION ---
Anesthesia Post Eval Post Anesthesia Eval Vitals: Last Vital Signs Temp 36.8 C 12/19/24 14:32 Pulse 90 12/19/24 17:00 Resp 14 12/19/24 17:00 BP 122/72 12/19/24 17:00 Pulse Ox 98 12/19/24 17:00 O2 Flow Rate 100 12/19/24 16:10 CV Function Including HR & BP: Stable Pain Control: Additional Therapies Ordered Nausea & Vomiting: Addtional Therapies Ordered Mental Status: Other Respiratory Status: Other Anesthesia Complications: None Other Details/Therapies Other Details/Therapies: Patient left intubated. He is to transfer to another facility post op.
--- NOTE | 2024-12-19 19:53 | XRAY Report ---
PROCEDURE: XR Chest for Line Placement INDICATIONS: ET tube, OG tube, and central line verification TECHNIQUE: One view of the chest was acquired. COMPARISON: None. FINDINGS: Surgical changes and devices: Endotracheal tube is approximately 2.9 cm. To the mónica. Nasogastric tube projects below the left hemidiaphragm. Partially visualized right-sided central venous catheter is present overlying the region of the SVC subclavian. Lungs and pleura: Overall appearance of interstitial prominence. Mediastinum: Mediastinal contours appear normal. Heart size is enlarged Bones and chest wall: No suspicious bony lesions. Overlying soft tissues appear unremarkable. IMPRESSION: Support lines as above. Interstitial prominence which could be related to edema versus pneumonia. Reviewed by: Juana Bray MD on 12/19/2024 7:52 PM PDT Approved by: Juana Bray MD on 12/19/2024 7:52 PM PDT Station ID: [id number]
[2024-12-20] MEDS ORDERED: ENOXAPARIN 40 MG/0.4 ML SYRINGE SUBQ SCH (09:00)
== END 2024-12-19 18:18 | disposition short-term general hospital (02) | DRG 718 ==
LOC: ED 09:39 → SDS 12:53 → ICU 12:54
PROVIDERS: ADMIT Urology; ATTEND Urology
DX: N49.3 Fournier gangrene; R73.9 Hyperglycemia, unspecified